=== PATIENT | male | born 1990 | race Caucasian/White ===

== ENCOUNTER 2018-05-22 22:38 | Emergency (ER) | payer MEDICAID ==
[~2018-05-22] VITALS: Ht 190.5 cm; Wt 90.7 kg
[2018-05-22 22:45] VITALS: BP 138/83
--- NOTE | 2018-05-22 22:47 | NUR ---
PT AMBULATORY TO ER LOBBY W/ STEADY GAIT IN STABLE CONDITION.
--- NOTE | 2018-05-22 23:14 | NUR ---
PT AMBULATED TO BED 6
--- NOTE | 2018-05-22 23:20 | NUR ---
PT TO ED WITH C/O ABSCESS TO TAILBONE AND BUTTOCK X 2 DAYS. SCANT AMOUNT OF DRAINGE NOTED. PT REPORTS PAIN WHEN SITTING AND MOVING. PT DENIES FEVER. PT PLACED INTO BED, KAVEH RUBALCAVA. PMH--DENIES RX--DENIES
[2018-05-23] MEDS ORDERED: LIDOCAINE MPF 1% 5mL VIAL ONE (00:05)
[2018-05-23] MEDS ORDERED: LORazepam 1 MG TAB PO ONE (00:30)
[2018-05-23] MEDS ORDERED: CEPHALEXIN 500 MG CAP PO ONE (00:30)
[2018-05-23] MEDS ORDERED: SULFAMETH/TRIMETH DS 800/160MG 1 TAB PO ONE (00:30)
--- NOTE | 2018-05-23 00:39 | NUR ---
COCCYX CLEANSED WITH NS. PAT AXEL. DRESSED WITH DRY GUAUZE AND SECURED WITH TAPE. VSS. CONTINUE TO MONITOR.
[2018-05-23 00:53] VITALS: BP 133/81
--- NOTE | 2018-05-23 00:53 | NUR ---
Patient discharged with v/s stable. Written and verbal after care instructions given and explained. Patient alert, oriented and verbalized understanding of instructions. Ambulatory with steady gait. All questions addressed prior to discharge. ID band removed. Patient advised to follow up with PMD. Rx of Bactrim, Ibuprofen, and Keflex given. Patient educated on indication of medication including possible reaction and side effects. Opportunity to ask questions provided and answered.
== END 2018-05-23 00:53 | disposition home or self-care (01) ==
LOC: MED 22:38
DX: L02.31 Cutaneous abscess of buttock (principal); F41.9 Anxiety disorder, unspecified
CPT/HCPCS: 10060; 99284; J2001

== ENCOUNTER 2018-07-19 14:02 | Emergency (ER) | payer MEDICAID ==
[~2018-07-19] VITALS: Ht 190.5 cm; Wt 88.5 kg
[2018-07-19 14:04] VITALS: BP 121/68
--- NOTE | 2018-07-19 14:10 | NUR ---
27Y/M BIB SELF WITH C/O ABSCESS ON LEFT UPPER BUTTOCK X 4 DAYS, + REDNESS, + SWELLING, - DISCHARGE, 8/10 SEVERE PAIN, PT IS AAOX4, VSS AT THIS TIME, BED DOWN , LOW, LOCKED, BEDRAIL UP X 1, ER MD AWARE AND NOTIFIED OF PT STATUS. MED HX: DENIES
--- NOTE | 2018-07-19 14:43 | NUR ---
LAC TRAY SET UP AT PT BEDSIDE, PA AWARE
--- NOTE | 2018-07-19 14:50 | NUR ---
Dr. Tracy evaluating patient at bedside.
[2018-07-19 15:35] VITALS: BP 120/65
== END 2018-07-19 15:35 | disposition home or self-care (01) ==
LOC: MED 14:02
DX: L02.31 Cutaneous abscess of buttock (principal); F41.9 Anxiety disorder, unspecified
CPT/HCPCS: 99283

== ENCOUNTER 2018-08-02 18:25 | Emergency (ER) | payer MEDICAID ==
[~2018-08-02] VITALS: Ht 188 cm; Wt 90.0 kg
[2018-08-02 18:35] VITALS: BP 141/83
--- NOTE | 2018-08-02 18:58 | NUR ---
27 Y MALE C/O ABSCESS. PT STATES THAT HE WOKE UP WITH 2 ABCESS IN BUTTOCKS. PT REPORTS CONSTANT SHARP/PINCHING PAIN AT 8/10. PT REPORTS THICK WHITISH/YELLOWISH/REDDISH DISCHARGE FROM ABCESSES. PT WAS SEEN 3X IN PAST 25 DAYS FOR ABCESS IN SAME AREA. SEEN IN THE ER ONE WEEK AGO AND GIVEN NEPROSYN, NO RELIEF. VSS AT THIS TIME. AA0X4. BED IS DOWN, LOCKED, BED RAIL X 1, ERMD NOTIFIED. MEDHX:DENIES RX:SUBOXON
--- NOTE | 2018-08-02 19:08 | NUR ---
PA AT BEDSIDE PREFORMING ASSESSMENT.
--- NOTE | 2018-08-02 19:10 | NUR ---
REPORT GIVEN TO LALITO BOSTON
--- NOTE | 2018-08-02 19:11 | NUR ---
REPORT RECIEVED FROM GI FOR CONTINUED CARE
[2018-08-02 19:20] VITALS: BP 141/83
--- NOTE | 2018-08-02 19:20 | NUR ---
Patient discharged with v/s stable. Written and verbal after care instructions given and explained. Patient alert, oriented and verbalized understanding of instructions. Ambulatory with steady gait. All questions addressed prior to discharge. ID band removed. Patient advised to follow up with PMD. Rx of BACTRIM, KEFLEX, MUPIROCIN given. Patient educated on indication of medication including possible reaction and side effects. Opportunity to ask questions provided and answered.
== END 2018-08-02 19:20 | disposition home or self-care (01) ==
LOC: MED 18:25
DX: L02.31 Cutaneous abscess of buttock (principal); F17.210 Nicotine dependence, cigarettes, uncomplicated
CPT/HCPCS: 99283

== ENCOUNTER 2018-10-19 21:54 | Emergency (ER) | payer MEDICAID ==
[~2018-10-19] VITALS: Ht 190.5 cm; Wt 91.6 kg
[2018-10-19 22:00] VITALS: BP 135/90
--- NOTE | 2018-10-19 22:00 | NUR ---
TO BED # 12 AMBULATORY
--- NOTE | 2018-10-19 22:10 | NUR ---
PT C/O OF BUMB ON LEFT FOREARM. BUMB IS RED AND SWOLLEN. PAIN LEVEL 10/10, THROBBING. PT STATED "I HAVE BEEN CLEAN FROM HEROIN FOR 7 MONTHS AND SHOT UP 6 OR 7 DAYS AGO." PT SAW PCP AND WAS PRESCRIBED [facility]-TMP DS BUT PCP RECOMMENDED TO COME TO ER. VSS. SAFETY MEASURES IN PLACE. WAITING FOR ERMD TO EVALUATE PT.
[2018-10-19] MEDS ORDERED: LIDOCAINE/EPI 1% 1:100000 20 ML VIAL INJ ONE (22:30)
--- NOTE | 2018-10-19 22:47 | NUR ---
Dr. Hancock examining patient.
--- NOTE | 2018-10-19 22:50 | NUR ---
BACITRACIN WAS PLACED ON PTS WOUND THEN COVERED WITH AN ABSORBENT PAD ROLL GAUZE WAS THEN APPLIED TO WRAP WOUND
[2018-10-19] MEDS ORDERED: BACITRACIN OINT 500 UNITS/GM PKT TP ONE ×2 (22:55→23:08)
[2018-10-19 23:00] VITALS: BP 135/90
--- NOTE | 2018-10-19 23:02 | NUR ---
Patient discharged with v/s stable. Written and verbal after care instructions given and explained. Patient alert, oriented and verbalized understanding of instructions. Ambulatory with steady gait. All questions addressed prior to discharge. ID band removed. Patient advised to follow up with PMD. Rx of KLONOPIN given. Patient educated on indication of medication including possible reaction and side effects. Opportunity to ask questions provided and answered.
== END 2018-10-19 23:02 | disposition home or self-care (01) ==
LOC: MED 21:54
DX: L02.414 Cutaneous abscess of left upper limb (principal); F17.210 Nicotine dependence, cigarettes, uncomplicated; F11.10 Opioid abuse, uncomplicated; Z76.0 Encounter for issue of repeat prescription
CPT/HCPCS: 10060; 99283; J2001

== ENCOUNTER 2019-10-16 04:59 | Emergency (ER) | payer MEDICAID ==
[~2019-10-16] VITALS: Ht 190.5 cm; Wt 104.3 kg
[2019-10-16 05:09] VITALS: BP 140/94
--- NOTE | 2019-10-16 05:12 | NUR ---
PT AMBULATED TO [facility] WITH STEADY GAIT.
[2019-10-16] MEDS ORDERED: LORazepam 2 MG/ML VIAL ONE (05:24)
[2019-10-16] MEDS ORDERED: LORazepam 2 MG/ML VIAL IM ONE (05:25)
--- NOTE | 2019-10-16 05:33 | NUR ---
29 Y/O MALE C/O ANXIETY X 4 DAYS BUT IS WORST TODAY; DENIES N/V/D; SKIN IS PINK/WARM/DRY; AAOX4 WITH EVEN AND STEADY GAIT; HR EVEN AND REGULAR; PT DENIES ANY FEVER, CP, SOB, OR COUGH AT THIS TIME; PATIENT STATES PAIN OF 0/10 AT THIS TIME; VSS; PATIENT POSITIONED FOR COMFORT IN CHAIR C MHX: ANXIETY NKA
--- NOTE | 2019-10-16 05:54 | NUR ---
AT BEDSIDE SPEAKING WITH PT
[2019-10-16 06:02] VITALS: BP 140/94
--- NOTE | 2019-10-16 06:02 | NUR ---
Patient discharged with v/s stable BY . Written and verbal after care instructions given and explained BY . Patient alert, oriented and verbalized understanding of instructions. Ambulatory with steady gait. All questions addressed prior to discharge BY . ID band removed. Patient advised to follow up with PMD BY . Rx of CITALOPRAM HYDROBROMIDE given. Patient educated on indication of medication including possible reaction and side effects BY . Opportunity to ask questions provided and answered BY .
== END 2019-10-16 06:02 | disposition home or self-care (01) ==
LOC: MED 04:59
DX: F41.9 Anxiety disorder, unspecified (principal); Z99.11 Dependence on respirator [ventilator] status
CPT/HCPCS: 96372; 99283; J2060

== ENCOUNTER 2019-11-04 16:33 | Emergency (ER) | payer MEDICAID ==
[~2019-11-04] VITALS: Ht 193 cm; Wt 113.4 kg
[2019-11-04 16:36] VITALS: BP 96/58
--- NOTE | 2019-11-04 16:38 | NUR ---
TAKEN TO BED 12
--- NOTE | 2019-11-04 16:38 | NUR ---
C/O LAC WOUND LEFT KNEE S/P FALL X TODAY. MED HX: ANXIETY
[2019-11-04] MEDS ORDERED: BACITRACIN OINT 500 UNITS/GM PKT TP ONE (16:40)
[2019-11-04] MEDS ORDERED: LIDOCAINE MPF 1% 10 MG/ML VIAL INJ ONE (16:40)
--- NOTE | 2019-11-04 17:07 | NUR ---
Patient discharged with v/s stable. Written and verbal after care instructions given and explained. Patient verbalized understanding. Ambulatory with steady gait. All questions addressed prior to discharge. Advised to follow up with PMD.
[2019-11-04 17:08] VITALS: BP 96/58
== END 2019-11-04 17:07 | disposition home or self-care (01) ==
LOC: MED 16:33
DX: S81.812A Laceration without foreign body, left lower leg, initial encounter (principal); W19.XXXA Unspecified fall, initial encounter; Y93.89 Activity, other specified; Y92.89 Other specified places as the place of occurrence of the external cause; Y99.8 Other external cause status
CPT/HCPCS: 12001; 99282; J2001

== ENCOUNTER 2019-11-11 08:30 | Emergency (ER) | payer MEDICAID ==
[~2019-11-11] VITALS: Ht 193 cm; Wt 102.1 kg
[2019-11-11 08:36] VITALS: BP 116/49
[2019-11-11] MEDS ORDERED: BACITRACIN OINT 500 UNITS/GM PKT TP ONE (08:45)
--- NOTE | 2019-11-11 08:50 | NUR ---
APPLIED BACITRACIN WITHOUT ANY ISSUES. PT REFUSED DRESSING BC THEY WERE IN A BLAKE TO LEAVE THE HOSPITAL.
--- NOTE | 2019-11-11 08:53 | NUR ---
pt seen and discharged by Dr. Hancock. No nursing care provided.
[2019-11-11 08:54] VITALS: BP 116/49
== END 2019-11-11 08:53 | disposition home or self-care (01) ==
LOC: MED 08:30
DX: S81.012A Laceration without foreign body, left knee, initial encounter (principal); F17.210 Nicotine dependence, cigarettes, uncomplicated; Z48.02 Encounter for removal of sutures; Z48.00 Encounter for change or removal of nonsurgical wound dressing; Y93.01 Activity, walking, marching and hiking; Y93.89 Activity, other specified; Y92.89 Other specified places as the place of occurrence of the external cause; Y99.8 Other external cause status
CPT/HCPCS: 99282